=== PATIENT | male | born 1985 | race American Indian/Alaskan Native ===

== ENCOUNTER 2021-01-12 19:29 | Emergency (ER) | payer SELFPAY ==
--- NOTE | 2021-01-12 21:46 | Emergency Department Report ---
ED Psych HPI - General Chief Complaint: Psych Stated Complaint: SI Time Seen by Provider: 01/12/21 21:14 Source: patient Mode of arrival: Ambulatory Limitations: No Limitations - History of Present Illness Initial Comments: 35-year-old male with a past medical history of bipolar disorder presents to the hospital complaining of suicidal ideation for the past 3 days. Patient has been noncompliant with his psychiatric medications for at least 5 years since being released from halfway. Patient served 10 years and present. He expresses anger towards the mother of his daughters. He complains of auditory hallucinations. He endorses cocaine and marijuana abuse. No physical complaints reported. - Related Data Allergies Allergy/AdvReac Type Severity Reaction Status Date / Time No Known Allergies Allergy Verified 01/12/21 22:35 ED Review of Systems ROS: Stated complaint: SI Other details as noted in HPI Comment: All other systems reviewed and negative ED Physical Exam - General Limitations: No Limitations - Other Other exam information: General: No acute distress Head: Atraumatic Eyes: normal appearance ENT: Moist mucous membranes Neck: Normal appearance, no midline tenderness Chest: Clear to auscultation bilaterally CV: Regular rate and rhythm Abdomen: Soft, normal bowel sounds, nontender, nondistended, no rebound or guarding Back: Normal inspection Extremity: Normal inspection, full range of motion Neuro: Alert O x 3, no facial asymmetry, speech clear, no gross motor sensory deficit Psych: Angry affect Skin: No rash ED Course Vital Signs 01/12/21 01/12/21 01/13/21 19:32 22:42 02:36 Temperature 97.8 F 98.3 F Pulse Rate 97 H 78 Respiratory 24 17 17 Rate Blood Pressure 129/82 133/74 [Right] O2 Sat by Pulse 100 98 98 Oximetry ED Medical Decision Making - Lab Data Result diagrams: 01/12/21 21:48 01/12/21 21:48 Lab Results 01/12/21 01/12/21 01/12/21 Range/Units 21:48 21:48 21:48 WBC 8.7 (4.5-11.0) K/mm3 RBC 4.89 (3.65-5.03) M/mm3 Hgb 13.0 (11.8-15.2) gm/dl Hct 39.5 (35.5-45.6) % MCV 81 L (84-94) fl MCH 27 L (28-32) pg MCHC 33 (32-34) % RDW 17.4 H (13.2-15.2) % Plt Count 389 (140-440) K/mm3 Lymph % (Auto) 25.7 (13.4-35.0) % [place] % (Auto) 7.6 H (0.0-7.3) % Eos % (Auto) 4.5 H (0.0-4.3) % Baso % (Auto) 0.5 (0.0-1.8) % Lymph # (Auto) 2.2 (1.2-5.4) K/mm3 [place] # (Auto) 0.7 (0.0-0.8) K/mm3 Eos # (Auto) 0.4 (0.0-0.4) K/mm3 Baso # (Auto) 0.0 (0.0-0.1) K/mm3 Seg Neutrophils % 61.7 (40.0-70.0) % Seg Neutrophils # 5.3 (1.8-7.7) K/mm3 Sodium 140 (137-145) mmol/L Potassium 4.0 (3.6-5.0) mmol/L Chloride 104.1 (98-107) mmol/L Carbon Dioxide 24 (22-30) mmol/L Anion Gap 16 mmol/L BUN 13 (9-20) mg/dL Creatinine 0.9 (0.8-1.3) mg/dL Estimated GFR > 60 ml/min BUN/Creatinine Ratio 14 % Glucose 97 (75-100) mg/dL Calcium 9.0 (8.4-10.2) mg/dL Urine Color (Yellow) Urine Turbidity (Clear) Urine pH (5.0-7.0) Ur Specific [place] (1.003-1.030) Urine Protein (Negative) mg/dL Urine Glucose (UA) (Negative) mg/dL Urine Ketones (Negative) mg/dL Urine Blood (Negative) Urine Nitrite (Negative) Urine Bilirubin (Negative) Urine Urobilinogen (<2.0) mg/dL Ur Leukocyte Esterase (Negative) Urine WBC (Auto) (0.0-6.0) /HPF Urine RBC (Auto) (0.0-6.0) /HPF Urine Mucus /HPF Salicylates < 0.3 L (2.8-20.0) mg/dL Urine Opiates Screen Urine Methadone Screen Acetaminophen (10.0-30.0) ug/mL Ur Barbiturates Screen Ur Phencyclidine Scrn Ur Amphetamines Screen U Benzodiazepines Scrn Urine Cocaine Screen U Marijuana (THC) Screen Drugs of Abuse Note Plasma/Serum Alcohol (0-0.07) % 01/12/21 01/12/21 01/12/21 Range/Units 21:48 21:48 23:59 WBC (4.5-11.0) K/mm3 RBC (3.65-5.03) M/mm3 Hgb (11.8-15.2) gm/dl Hct (35.5-45.6) % MCV (84-94) fl MCH (28-32) pg MCHC (32-34) % RDW (13.2-15.2) % Plt Count (140-440) K/mm3 Lymph % (Auto) (13.4-35.0) % [place] % (Auto) (0.0-7.3) % Eos % (Auto) (0.0-4.3) % Baso % (Auto) (0.0-1.8) % Lymph # (Auto) (1.2-5.4) K/mm3 [place] # (Auto) (0.0-0.8) K/mm3 Eos # (Auto) (0.0-0.4) K/mm3 Baso # (Auto) (0.0-0.1) K/mm3 Seg Neutrophils % (40.0-70.0) % Seg Neutrophils # (1.8-7.7) K/mm3 Sodium (137-145) mmol/L Potassium (3.6-5.0) mmol/L Chloride (98-107) mmol/L Carbon Dioxide (22-30) mmol/L Anion Gap mmol/L BUN (9-20) mg/dL Creatinine (0.8-1.3) mg/dL Estimated GFR ml/min BUN/Creatinine Ratio % Glucose (75-100) mg/dL Calcium (8.4-10.2) mg/dL Urine Color (Yellow) Urine Turbidity (Clear) Urine pH (5.0-7.0) Ur Specific [place] (1.003-1.030) Urine Protein (Negative) mg/dL Urine Glucose (UA) (Negative) mg/dL Urine Ketones (Negative) mg/dL Urine Blood (Negative) Urine Nitrite (Negative) Urine Bilirubin (Negative) Urine Urobilinogen (<2.0) mg/dL Ur Leukocyte Esterase (Negative) Urine WBC (Auto) (0.0-6.0) /HPF Urine RBC (Auto) (0.0-6.0) /HPF Urine Mucus /HPF Salicylates (2.8-20.0) mg/dL Urine Opiates Screen Negative Urine Methadone Screen Negative Acetaminophen 5.0 L (10.0-30.0) ug/mL Ur Barbiturates Screen Negative Ur Phencyclidine Scrn Negative Ur Amphetamines Screen Positive U Benzodiazepines Scrn Negative Urine Cocaine Screen Positive U Marijuana (THC) Screen Positive Drugs of Abuse Note Disclamer Plasma/Serum Alcohol < 0.01 (0-0.07) % 01/13/21 Range/Units 23:59 WBC (4.5-11.0) K/mm3 RBC (3.65-5.03) M/mm3 Hgb (11.8-15.2) gm/dl Hct (35.5-45.6) % MCV (84-94) fl MCH (28-32) pg MCHC (32-34) % RDW (13.2-15.2) % Plt Count (140-440) K/mm3 Lymph % (Auto) (13.4-35.0) % [place] % (Auto) (0.0-7.3) % Eos % (Auto) (0.0-4.3) % Baso % (Auto) (0.0-1.8) % Lymph # (Auto) (1.2-5.4) K/mm3 [place] # (Auto) (0.0-0.8) K/mm3 Eos # (Auto) (0.0-0.4) K/mm3 Baso # (Auto) (0.0-0.1) K/mm3 Seg Neutrophils % (40.0-70.0) % Seg Neutrophils # (1.8-7.7) K/mm3 Sodium (137-145) mmol/L Potassium (3.6-5.0) mmol/L Chloride (98-107) mmol/L Carbon Dioxide (22-30) mmol/L Anion Gap mmol/L BUN (9-20) mg/dL Creatinine (0.8-1.3) mg/dL Estimated GFR ml/min BUN/Creatinine Ratio % Glucose (75-100) mg/dL Calcium (8.4-10.2) mg/dL Urine Color Yellow (Yellow) Urine Turbidity Clear (Clear) Urine pH 5.0 (5.0-7.0) Ur Specific [place] 1.015 (1.003-1.030) Urine Protein <15 mg/dl (Negative) mg/dL Urine Glucose (UA) Neg (Negative) mg/dL Urine Ketones Neg (Negative) mg/dL Urine Blood Neg (Negative) Urine Nitrite Neg (Negative) Urine Bilirubin Neg (Negative) Urine Urobilinogen < 2.0 (<2.0) mg/dL Ur Leukocyte Esterase Neg (Negative) Urine WBC (Auto) 1.0 (0.0-6.0) /HPF Urine RBC (Auto) < 1.0 (0.0-6.0) /HPF Urine Mucus Few /HPF Salicylates (2.8-20.0) mg/dL Urine Opiates Screen Urine Methadone Screen Acetaminophen (10.0-30.0) ug/mL Ur Barbiturates Screen Ur Phencyclidine Scrn Ur Amphetamines Screen U Benzodiazepines Scrn Urine Cocaine Screen U Marijuana (THC) Screen Drugs of Abuse Note Plasma/Serum Alcohol (0-0.07) % - Medical Decision Making 35-year-old male presents to the hospital with psychosis, suicidal ideation and anger directed towards the mother of his children. Patient is medically cleared. Labs reveal polysubstance abuse (cocaine marijuana and amphetamine). Awaiting mental health evaluation Critical Care Time: No Critical care attestation.: If time is entered above; I have spent that time in minutes in the direct care of this critically ill patient, excluding procedure time. ED Disposition Clinical Impression: Suicidal ideation, Acute psychosis, Noncompliance with medication regimen, Polysubstance abuse, Medical clearance for psychiatric admission Disposition: [address] [place] [address] Is pt being admited?: No Condition: Stable Time of Disposition: 04:23
[2021-01-12 22:05] LABS: Basophils % (Auto) 0.5 % (0.0-1.8); Eosinophils # (Auto) 0.4 K/mm3 (0.0-0.4); Eosinophils % (Auto) 4.5 % (0.0-4.3); Hematocrit 39.5 % (35.5-45.6); Lymphocytes # (Auto) 2.2 K/mm3 (1.2-5.4); Lymphocytes % (Auto) 25.7 % (13.4-35.0); Mean Corpuscular HGB Conc 33 % (32-34); Mean Corpuscular Volume 81 fl (84-94); Monocytes # (Auto) 0.7 K/mm3 (0.0-0.8); Monocytes % (Auto) 7.6 % (0.0-7.3); Platelet Count 389 K/mm3 (140-440); Red Blood Count 4.89 M/mm3 (3.65-5.03); Red Cell Distribution Width 17.4 % (13.2-15.2)
[2021-01-12 22:25] LABS: BUN/Creatinine Ratio 14; Blood Urea Nitrogen 13 mg/dL (9-20); Hemolysis Index 9
[2021-01-13 00:51] LABS: Bilirubin,Urine NEG (Negative); Blood,Urine NEG (Negative); Color,Urine Yellow (Yellow); Mucus,Urine FEW /HPF; Protein,Urine <15 mg/dL mg/dL (Negative); Urobilinogen,Urine < 2.0 mg/dL (<2.0)
[2021-01-13 00:54] LABS: RBC,Urine < 1.0 /HPF (0.0-6.0)
[2021-01-13 00:56] LABS: Benzodiazepines Screen,Urine Negative; Methadone Screen,Urine Negative; Opiate Screen,Urine Negative
[2021-01-13 01:12] LABS: Amphetamine Screen,Urine Positive; Cannabinoid Screen,Urine Positive; Cocaine Screen,Urine Positive
--- NOTE | 2021-01-13 11:19 | Consultation ---
History of Present Illness - Reason for Consult Consult date: 01/13/21 Reason for consult: ental health evaluation - History of Present Psychiatric Illness ED Note: 35-year-old male with a past medical history of bipolar disorder presents to the hospital complaining of suicidal ideation for the past 3 days. Patient has been noncompliant with his psychiatric medications for at least 5 years since being released from long-term. Patient served 10 years and present. He expresses anger towards the mother of his daughters. He complains of auditory hallucinations. He endorses cocaine and marijuana abuse. No physical complaints reported. Luis Miguel Weber is a 35 year old male with history of Schizophrenia, Bipolar, and Borderline personality disorder. The patient reports that he was feeling overwhelmed. He states recent stressors such as issues with " baby mama." He reports being noncompliant with psychotropic medications since his release from long-term. The patient states he feels better today, he denies any current suicidal/homicidal ideation and denies hallucinations. PAST PSYCHIATRIC HISTORY Diagnoses:Schizophrenia, Bipolar Borderline personality disorder Suicide attempts or Self-harm behavior: none reported Prior psychiatric hospitalizations: yes Substance Abuse history: Cocaine, Marijuana Previous psychiatric medications tried: Trazodone, Trileptal Outpatient treatment: unknown PAST MEDICAL HISTORY: none reported Family Psychiatric History: None reported or documented SOCIAL HISTORY Marital Status: Single Living Arrangements: Lives with family Employment Status: employed Access to guns/weapons: Denies Education: GED History of Abuse: none reported Legal History: yes REVIEW OF SYSTEMS Constitutional: Negative for weight loss ENT: Negative for stridor Respiratory: Negative for cough or hemoptysis All other systems reviewed and are negative MENTAL STATUS EXAMINATION General Appearance and Behavior: Age appropriate, poor hygiene, wearing appropriate clothes, poor eye contact, cooperative irritable with questioning. Cooperation: Participating Hostile and Guarded Psychomotor Behavior: , unremarkable and within normal limits Mood: "ok" Affect and affective range: congruent with stated mood Thought Process: goal directed Thought Content: Not suicidal Intellectual Functioning: Average Suicidal Ideation: Denies SI Homicidal Ideation: Denies HI Hallucination: Denies Impulse Control: Impaired Insight and Judgment: Limited insight and fair judgment Memory: Normal Attention: Normal Orientation: Alert, oriented Assessment and Plan - Psychiatric problem (1) Bipolar disorder Current Visit: Yes Status: Acute RECOMMENDATIONS Discontinue 1013 Start Trileptal 600mg po BID Start Trazodone 50mg po QHS MEDICATIONS: Risks, benefits and alternatives of medications discussed with the patient, questions answered and consent obtained from patient. PSYCHOTHERAPY: Supportive psychotherapy provided MEDICAL: Per primary team DELIRIUM PRECAUTIONS: Please re-orient patient frequently, keep lights on during the day, and minimize benzodiazepines and opiates as these medications could worsen patient's confusion. LAMINATION TECHNICIAN: Per medical team DISPOSITION: Do not Recommends acute inpatient psychiatric hospitalization at this time LEGAL STATUS: Discontinue 1013 FOLLOW-UP: Will sign off. Thank you for the consult. Please contact with any questions and/or concerns. Salvage Machine Operator will provide the patient with safety plan and psychiatric out-patient resources. Medications and Allergies Medications and Allergies Allergies Allergy/AdvReac Type Severity Reaction Status Date / Time No Known Allergies Allergy Verified 01/12/21 22:35 Home Medications Medication Instructions Recorded Confirmed Last Taken Type OXcarbazepine [Trileptal] 600 mg PO BID 30 Days #60 tablet 01/13/21 Unknown Rx traZODone [Desyrel] 50 mg PO QHS 30 Days #30 tab 01/13/21 Unknown Rx Mental Status Exam - Vital signs Last Vital Signs Temp 98.2 F 01/13/21 09:12 Pulse 98 H 01/13/21 09:12 Resp 18 01/13/21 09:12 BP 119/79 01/13/21 09:12 Pulse Ox 98 01/13/21 09:12 Results Result Diagrams: 01/12/21 21:48 01/12/21 21:48 Abnormal lab results 01/12/21 01/12/21 01/12/21 Range/Units 21:48 21:48 21:48 MCV 81 L (84-94) fl MCH 27 L (28-32) pg RDW 17.4 H (13.2-15.2) % [place] % (Auto) 7.6 H (0.0-7.3) % Eos % (Auto) 4.5 H (0.0-4.3) % Salicylates < 0.3 L (2.8-20.0) mg/dL Acetaminophen 5.0 L (10.0-30.0) ug/mL All other labs normal.
--- NOTE | 2021-01-13 13:07 | Event Note ---
Date: 01/13/21 There are no new events overnight. Awaiting continuation of psychiatric plan.
[2021-01-13 14:22] VITALS: BP 141/90
== END 2021-01-13 14:21 | disposition home or self-care (01) ==
LOC: ED 19:29
DX: F23 Brief psychotic disorder (principal); R45.851 Suicidal ideations; F19.10 Other psychoactive substance abuse, uncomplicated
CPT/HCPCS: 36415; 80048; 80307; 80320; 81001; 85025; 99284; G0480

== ENCOUNTER 2021-10-05 15:55 | Emergency (ER) | payer SELFPAY ==
[2021-10-05 17:04] VITALS: BP 146/94
== END 2021-10-06 17:30 | disposition left against medical advice (07) ==
LOC: ED 15:55
DX: I10 Essential (primary) hypertension (principal); Z53.21 Procedure and treatment not carried out due to patient leaving prior to being seen by health care provider